=== PATIENT | female | born 1980 | race Caucasian/White ===

== ENCOUNTER → 2018-10-01 07:21 | Outpatient (CLI) | payer OTHER, SELFPAY ==
[2018-10-01 08:37] LABS: Alanine Aminotransferase 21 IU/L (9-52); Albumin 4.2 g/dL (3.5-5.0); Albumin Globulin Ratio 1.5 (1.0-2.8); Alkaline Phosphatase 51 U/L (38-126); Aspartate Aminotransferase 31 IU/L (14-36); Bilirubin Total 0.6 mg/dL (0.2-1.3); Blood Urea Nitrogen 16 mg/dL (7-17); Calcium 9.2 mg/dL (8.4-10.2); Carbon Dioxide 27 mmol/L (22-32); Chloride 100 mmol/L (98-107); Estimated Glomerular Filt Rate > 60.0 mL/min (>60); Globulin 2.8 g/dL (1.7-4.1); Glucose 78 mg/dL (70-100); HEMOLYSIS < 15 (0-50); Potassium 3.8 mmol/L (3.4-5.1); Sodium 137 mmol/L (137-145)
[2018-10-01 09:42] LABS: Thyroid Stimulating Hormone 3.65 uIU/mL (0.47-4.68)
== END ==
PROVIDERS: PCP Physician Assistant; Visit Provider Physician Assistant
DX: E03.9 Hypothyroidism, unspecified (principal); F32.81 Premenstrual dysphoric disorder
CPT/HCPCS: 36415; 80053; 84443

== ENCOUNTER → 2019-12-03 07:29 | Outpatient (CLI) | payer OTHER, SELFPAY ==
[2019-12-03 09:48] LABS: Thyroid Stimulating Hormone 3.69 uIU/mL (0.47-4.68)
== END ==
PROVIDERS: Referring Provider Nurse Practitioner; Visit Provider Nurse Practitioner
DX: E03.9 Hypothyroidism, unspecified (principal)
CPT/HCPCS: 36415; 84443

== ENCOUNTER → 2020-02-19 08:03 | Outpatient (CLI) | payer OTHER, SELFPAY ==
[2020-02-19 09:18] LABS: Alanine Aminotransferase 15 IU/L (<35); Albumin 4.1 g/dL (3.5-5.0); Albumin Globulin Ratio 1.4 (1.0-2.8); Alkaline Phosphatase 67 U/L (38-126); Aspartate Aminotransferase 35 IU/L (14-36); BUN Creatinine Ratio 13.2 (6-22); Blood Urea Nitrogen 10 mg/dL (7-17); Carbon Dioxide 30 mmol/L (22-32); Chloride 100 mmol/L (98-107); Cholesterol 159 mg/dL (140-199); Estimated Glomerular Filt Rate > 60.0 mL/min (>60); Glucose 77 mg/dL (70-100); HDL Cholesterol 71 mg/dL (40-60); HEMOLYSIS < 15 (0-50); LDL Cholesterol Calculated 64 mg/dL (<100); Potassium 3.8 mmol/L (3.4-5.1); Sodium 136 mmol/L (137-145); Total Protein 7.1 g/dL (6.3-8.2); Triglycerides 118 mg/dL (35-150)
== END ==
PROVIDERS: PCP Registered Nurse Diabetes Educator; Referring Provider Registered Nurse Diabetes Educator; Visit Provider Registered Nurse Diabetes Educator
DX: Z00.00 Encounter for general adult medical examination without abnormal findings (principal)
CPT/HCPCS: 36415; 80053; 80061

== ENCOUNTER → 2020-03-04 16:00 | Outpatient (CLI) | payer OTHER, SELFPAY ==
--- NOTE | 2020-03-04 16:01 | DI.MG.S_ITS ---
BILATERAL DIGITAL SCREENING MAMMOGRAM 3D/2D WITH CAD: 03/04/2020 CLINICAL: Routine screening. Family history of breast cancer. Comparison is made to exams dated: 06/24/2014 mammogram and 03/21/2009 mammogram - [facility]. The tissue of both breasts is heterogeneously dense. This may lower the sensitivity of mammography. Current study was also evaluated with a Computer Aided Detection (CAD) system. No significant masses, calcifications, or other findings are seen in either breast. There has been no significant interval change. IMPRESSION: NEGATIVE There is no mammographic evidence of malignancy. A 1 year screening mammogram is recommended. This exam was interpreted at Station ID: [id number]. NOTE: For mammograms, a report in lay terms will be sent to the patient. Approximately 15% of breast malignancies will not be visualized mammographically. In the management of a palpable breast mass, a negative mammogram must not discourage biopsy of a clinically suspicious lesion. Electronically Signed By: Angel toussaint/[email or web address]:03/06/2020 09:46:39 letter sent: Normal Exam ACR BI-RADS Category 1: Negative 3341F
== END ==
PROVIDERS: PCP Registered Nurse Diabetes Educator; Referring Provider Registered Nurse Diabetes Educator; Visit Provider Registered Nurse Diabetes Educator
DX: Z12.31 Encounter for screening mammogram for malignant neoplasm of breast (principal); Z80.3 Family history of malignant neoplasm of breast
CPT/HCPCS: 77063; 77067

== ENCOUNTER → 2021-03-07 16:07 | Outpatient (CLI) | payer OTHER, SELFPAY ==
--- NOTE | 2021-03-07 | DI.MG.S_ITS ---
BILATERAL DIGITAL SCREENING MAMMOGRAM 3D/2D WITH CAD: 03/07/2021 CLINICAL: Routine screening. Family history of breast cancer. Comparison is made to exams dated: 03/04/2020 mammogram, 06/24/2014 mammogram, and 03/21/2009 mammogram - [facility]. There are scattered fibroglandular elements in both breasts. Current study was also evaluated with a Computer Aided Detection (CAD) system. No significant masses, calcifications, or other findings are seen in either breast. There has been no significant interval change. IMPRESSION: NEGATIVE There is no mammographic evidence of malignancy. A 1 year screening mammogram is recommended. This exam was interpreted at Station ID: [id number]. NOTE: For mammograms, a report in lay terms will be sent to the patient. Approximately 15% of breast malignancies will not be visualized mammographically. In the management of a palpable breast mass, a negative mammogram must not discourage biopsy of a clinically suspicious lesion. Electronically Signed By: Kris Johnston acr/penrad:03/07/2021 17:02:00 letter sent: Normal Exam ACR BI-RADS Category 1: Negative 3341F
== END ==
PROVIDERS: PCP Registered Nurse Diabetes Educator; Referring Provider Registered Nurse Diabetes Educator; Visit Provider Registered Nurse Diabetes Educator
DX: Z12.31 Encounter for screening mammogram for malignant neoplasm of breast (principal)
CPT/HCPCS: 77063; 77067

== ENCOUNTER → 2021-04-19 08:07 | Outpatient (CLI) | payer OTHER, SELFPAY ==
[2021-04-19 09:10] LABS: Add Manual Diff / Slide Review NO; Basophils Absolute Auto 0 /uL (0-100); Basophils Percent Auto 0.9 % (0-2); Eosinophils Absolute Auto 100 /uL (0-450); Eosinophils Percent Auto 2.3 % (2-4); Hematocrit 39.4 % (36-46); Hemoglobin 13.3 g/dL (12.0-16.0); Lymphocytes Absolute Auto 1100 /uL (1100-4500); Lymphocytes Percent Auto 28.9 % (25-40); Mean Corpuscular HGB Conc 33.6 % (30-36); Mean Corpuscular Hemoglobin 31.2 PG (26-34); Mean Corpuscular Volume 92.7 fL (80-100); Monocytes Absolute Auto 300 /uL (0-900); Monocytes Percent Auto 8.7 % (3-14); Neutrophils Absolute Auto 2200 /uL (1500-7000); Neutrophils Percent Auto 59.2 % (50-75); Platelet Count 307 X10^3/uL (150-400); Red Blood Cell Count 4.26 X10^6/uL (4.0-5.2); White Blood Cell Count 3.6 X10^3/uL (4.5-11.0)
[2021-04-19 10:20] LABS: Alanine Aminotransferase 15 IU/L (<35); Albumin 3.9 g/dL (3.5-5.0); Albumin Globulin Ratio 1.5 (1.0-2.8); Alkaline Phosphatase 57 U/L (38-126); Aspartate Aminotransferase 30 IU/L (14-36); BUN Creatinine Ratio 9.2 (6-22); Bilirubin Total 0.5 mg/dL (0.2-1.3); Blood Urea Nitrogen 10 mg/dL (7-17); Calcium 9.1 mg/dL (8.4-10.2); Carbon Dioxide 28 mmol/L (22-32); Chloride 102 mmol/L (98-107); Estimated Glomerular Filt Rate 55.3 mL/min (>60); Globulin 2.6 g/dL (1.7-4.1); Glucose 53 mg/dL (70-100); HEMOLYSIS < 15 (0-50); Sodium 137 mmol/L (137-145); Total Protein 6.5 g/dL (6.3-8.2)
[2021-04-19 10:46] LABS: TSH w/ Reflex to FT4 2.67 uIU/mL (0.47-4.68)
== END ==
PROVIDERS: PCP Registered Nurse Diabetes Educator; Referring Provider Registered Nurse Diabetes Educator; Visit Provider Registered Nurse Diabetes Educator
DX: E03.9 Hypothyroidism, unspecified (principal); K51.90 Ulcerative colitis, unspecified, without complications; Z51.81 Encounter for therapeutic drug level monitoring
CPT/HCPCS: 36415; 80053; 84443; 85025

== ENCOUNTER → 2021-05-22 16:37 | Outpatient (CLI) | payer OTHER, SELFPAY ==
[2021-05-22 18:00] LABS: BUN Creatinine Ratio 10.3 (6-22); Blood Urea Nitrogen 8 mg/dL (7-17); Calcium 9.5 mg/dL (8.4-10.2); Carbon Dioxide 30 mmol/L (22-32); Chloride 102 mmol/L (98-107); Estimated Glomerular Filt Rate > 60.0 mL/min (>60); Glucose 89 mg/dL (70-100); HEMOLYSIS < 15 (0-50); Potassium 4.3 mmol/L (3.4-5.1); Sodium 138 mmol/L (137-145)
== END ==
PROVIDERS: PCP Registered Nurse Diabetes Educator; Referring Provider Registered Nurse Diabetes Educator; Visit Provider Registered Nurse Diabetes Educator
DX: R79.89 Other specified abnormal findings of blood chemistry (principal)
CPT/HCPCS: 36415; 80048

== ENCOUNTER → 2022-03-09 08:35 | Outpatient (CLI) | payer OTHER, SELFPAY ==
--- NOTE | 2022-03-09 08:37 | DI.MG.S_ITS ---
BILATERAL DIGITAL SCREENING MAMMOGRAM 3D/2D WITH CAD: 03/09/2022 CLINICAL: Routine screening. Family history of breast cancer. Comparison is made to exams dated: 03/07/2021 mammogram, 03/04/2020 mammogram, and 06/24/2014 mammogram - [facility]. Both breasts are heterogeneously dense, which may obscure small masses (category c / 51-75% glandular tissue). Current study was also evaluated with a Computer Aided Detection (CAD) system. No significant masses, calcifications, or other findings are seen in either breast. There has been no significant interval change. IMPRESSION: NEGATIVE There is no mammographic evidence of malignancy. A 1 year screening mammogram is recommended. Based on Tyrer-Cuzick model (a risk assessment model), the patient's lifetime risk is 30.6% and her 10 year risk is 5.3%. If a patient has an elevated risk, a more comprehensive evaluation should be considered and/or a referral to a genetic counselor. The [employer] [employer], [employer], and NCCN Guidelines advise the consideration of Breast MRI as an adjunct to screening mammography in patients whose Lifetime risk to develop breast cancer is 20% or higher. This exam was interpreted at Station ID: [id number]. NOTE: For mammograms, a report in lay terms will be sent to the patient. Approximately 15% of breast malignancies will not be visualized mammographically. In the management of a palpable breast mass, a negative mammogram must not discourage biopsy of a clinically suspicious lesion. Electronically Signed By: Jareth mobley/antonina:03/09/2022 10:30:08 letter sent: Normal Exam ACR BI-RADS Category 1: Negative 3341F
== END ==
PROVIDERS: PCP Registered Nurse Diabetes Educator; Referring Provider Registered Nurse Diabetes Educator; Visit Provider Registered Nurse Diabetes Educator
DX: Z12.31 Encounter for screening mammogram for malignant neoplasm of breast (principal); Z80.3 Family history of malignant neoplasm of breast
CPT/HCPCS: 77063; 77067

== ENCOUNTER → 2022-07-01 12:00 | Outpatient (CLI) | payer OTHER, SELFPAY ==
--- NOTE | 2022-07-01 12:01 | DI.RAD.S_ITS ---
PROCEDURE: XR FINGER RT MIN 2V INDICATIONS: eval 3rd pip joint pain/swelling TECHNIQUE: PA hand, 2 views of the middle finger acquired. COMPARISON: None. FINDINGS: Bones: No acute fractures or dislocations. No suspicious bony lesions. Soft tissues: No suspicious soft tissue calcifications. Mild 3rd digit dorsal soft tissue swelling. IMPRESSION: Mild soft tissue swelling about the dorsal aspect of the 3rd PIP joint; otherwise joints are well maintained and no inflammatory arthritic changes. Dictated by: Reece KELLOGG Interpreted: Laz Dobbins MD on 07/01/2022 at 13:07 Transcribed by: NAYLA on 07/01/2022 at 13:08 Approved by: Laz Dobbins M.D. on 07/01/2022 at 20:21
== END ==
PROVIDERS: PCP Registered Nurse Diabetes Educator; Referring Provider Registered Nurse Diabetes Educator; Visit Provider Registered Nurse Diabetes Educator
DX: M25.441 Effusion, right hand (principal)
CPT/HCPCS: 73140

== ENCOUNTER → 2022-07-02 06:52 | Outpatient (CLI) | payer OTHER, SELFPAY ==
[2022-07-02 07:38] LABS: Add Manual Diff / Slide Review NO; Basophils Absolute Auto 0 /uL (0-100); Basophils Percent Auto 1.1 % (0-2); Eosinophils Absolute Auto 400 /uL (0-450); Eosinophils Percent Auto 8.5 % (2-4); Hematocrit 39.8 % (36-46); Hemoglobin 13.4 g/dL (12.0-16.0); Lymphocytes Absolute Auto 1000 /uL (1100-4500); Lymphocytes Percent Auto 23.3 % (25-40); Mean Corpuscular HGB Conc 33.7 % (30-36); Mean Corpuscular Volume 91.9 fL (80-100); Monocytes Absolute Auto 300 /uL (0-900); Monocytes Percent Auto 7.2 % (3-14); Neutrophils Absolute Auto 2400 /uL (1500-7000); Neutrophils Percent Auto 59.9 % (50-75); Platelet Count 248 X10^3/uL (150-400); Red Blood Cell Count 4.33 X10^6/uL (4.0-5.2); Red Cell Distribution Width 12.5 % (11.6-14.8); White Blood Cell Count 4.1 X10^3/uL (4.5-11.0)
[2022-07-02 07:45] LABS: Alanine Aminotransferase 22 IU/L (<35); Albumin 4.1 g/dL (3.5-5.0); Albumin Globulin Ratio 1.2 (1.0-2.8); Alkaline Phosphatase 68 U/L (38-126); Aspartate Aminotransferase 30 IU/L (14-36); BUN Creatinine Ratio 15.8 (6-22); Bilirubin Total 0.7 mg/dL (0.2-1.3); Blood Urea Nitrogen 12 mg/dL (7-17); C-Reactive Protein Quant < 0.5 mg/dL (<1.0); Calcium 8.9 mg/dL (8.4-10.2); Carbon Dioxide 27 mmol/L (22-32); Chloride 101 mmol/L (98-107); Cholesterol 165 mg/dL (140-199); Estimated Glomerular Filt Rate > 60 mL/min (>60); Globulin 3.3 g/dL (1.7-4.1); Glucose 83 mg/dL (70-100); HDL Cholesterol 84 mg/dL (40-60); HEMOLYSIS < 15 (0-50); LDL Cholesterol Calculated 65 mg/dL (<100); Potassium 3.7 mmol/L (3.4-5.1); Sodium 136 mmol/L (137-145); Total Protein 7.4 g/dL (6.3-8.2); Triglycerides 79 mg/dL (35-150)
[2022-07-02 07:52] LABS: Erythrocyte Sedimentation Rate 5 MM/HR (0-20); Rheumatoid Factor < 8.6 IU/mL (<12.0)
[2022-07-02 08:14] LABS: TSH w/ Reflex to FT4 4.15 uIU/mL (0.47-4.68)
[2022-07-04 17:02] LABS: CCP Antibodies IgG/IgA 41 units (0-19)
[2022-07-05 20:07] LABS: ANA Screen, IFA Positive (.)
== END ==
PROVIDERS: PCP Registered Nurse Diabetes Educator; Referring Provider Registered Nurse Diabetes Educator; Visit Provider Registered Nurse Diabetes Educator
DX: E03.9 Hypothyroidism, unspecified (principal); M25.449 Effusion, unspecified hand; Z00.00 Encounter for general adult medical examination without abnormal findings
CPT/HCPCS: 36415; 80053; 80061; 84443; 84550; 85025; 85651; 86038; 86140; 86200; 86430

== ENCOUNTER → 2022-09-25 13:16 | Outpatient (CLI) | payer OTHER, SELFPAY ==
--- NOTE | 2022-09-25 13:17 | DI.MRI.S_ITS ---
BREAST MRI OF BOTH BREASTS: 09/25/2022 CLINICAL: High risk Breast cancer screen. PROCEDURE: MR BREAST BI WO/W CON INDICATIONS: high risk breast cancer screen based on Tyrer-Cuzik TECHNIQUE: The patient was placed prone in a dedicated breast imaging coil. Precontrast axial STIR and 3D FLASH without fat saturation sequences were obtained. Both before and after bolus injection of contrast, sequential 1-minute axial 3D FLASH with fat saturation sequences for 3 time points, with subtraction images and maximum intensity projections (MIP's) generated. Delayed sagittal FLASH images with fat saturation were also obtained. CONTRAST: 20 cc ProHance IV contrast. Computer-aided detection, including computer algorithm analysis of MRI image data for lesion detection and characterization, pharmacokinetic analysis, with further physician review for interpretation, was performed. COMPARISON: MG, MM SCREENING MAMMO BI, 03/09/2022, 8:47. MG, MM SCREENING MAMMO BI, 03/07/2021, 16:32. MG, MM SCREENING MAMMO BI, 03/04/2020, 16:19. FINDINGS: Image quality: Excellent. There is moderate background parenchymal enhancement. Right breast: No mass or suspicious enhancement. Left breast: No mass or suspicious enhancement. A few small T2 hyperintense cysts. Miscellaneous: No enlarged lymph nodes. IMPRESSION: BENIGN No mass or suspicious enhancement. No enlarged lymph nodes. BIRADS 2 A 1 year screening mammogram is recommended. 03/10/2023 COMMENT: The imaging literature indicates that a negative contrast breast MRI examination has a high sensitivity and a moderate specificity for detecting and excluding invasive carcinomas to a detection threshold of 3-5 mm; nonetheless, appropriate clinical and mammographic follow-up are recommended. MRI is not sensitive for detecting DCIS (ductal carcinoma in situ) and may not detect large invasive neoplasms that show only minimal enhancement such as mucinous carcinoma. If there are suspicious calcifications or clinically worrisome palpable masses, then biopsy should still be considered. Invasive neoplasms can be hidden by co-existent and benign enhancement caused by mastitis, hormone therapy effects, radiation therapy, , and recent biopsy or surgery. False positive examinations can occur in a number of circumstances, including breasts that have recently been subject to invasive procedures and those that contain atypical ductal hyperplasia, hormonally stimulated glandular tissue, fat necrosis, or radial scars. Dictated by: Karel Hammonds M.D. on 09/26/2022 at 7:44 This exam was interpreted at Station ID: [id number]. Electronically Signed By: Karel Hammonds M.D. slc/:09/26/2022 08:01:42 letter sent: Normal Exam ACR BI-RADS Category 2: Benign Finding(s) 3342F
== END ==
PROVIDERS: PCP Registered Nurse Diabetes Educator; Referring Provider Registered Nurse Diabetes Educator; Visit Provider Registered Nurse Diabetes Educator
DX: Z12.39 Encounter for other screening for malignant neoplasm of breast (principal)
CPT/HCPCS: 77049; A9579

== ENCOUNTER → 2023-03-17 07:30 | Outpatient (CLI) | payer OTHER, SELFPAY ==
--- NOTE | 2023-03-17 | DI.MG.S_ITS ---
BILATERAL DIGITAL SCREENING MAMMOGRAM 3D/2D WITH CAD: 03/17/2023 CLINICAL: Routine screening. Family history of breast cancer. Comparison is made to exams dated: 03/09/2022 mammogram, 03/07/2021 mammogram, and 03/04/2020 mammogram - [facility]. Both breasts are heterogeneously dense, which may obscure small masses (category c / 51-75% glandular tissue). Current study was also evaluated with a Computer Aided Detection (CAD) system. No significant masses, calcifications, or other findings are seen in either breast. There has been no significant interval change. IMPRESSION: NEGATIVE There is no mammographic evidence of malignancy. A 1 year screening mammogram is recommended. Future imaging is recommended as follows: 09/26/2023 screening mammogram. Supplemental MRI screening should be considered given significantly elevated lifetime risk (below). Based on Tyrer-Cuzick model (a risk assessment model), the patient's lifetime risk is 30.6% and her 10 year risk is 5.7%. If a patient has an elevated risk, a more comprehensive evaluation should be considered and/or a referral to a genetic counselor. The [employer], [employer], and NCCN Guidelines advise the consideration of Breast MRI as an adjunct to screening mammography in patients whose Lifetime risk to develop breast cancer is 20% or higher. This exam was interpreted at Station ID: [id number]. NOTE: For mammograms, a report in lay terms will be sent to the patient. Approximately 15% of breast malignancies will not be visualized mammographically. In the management of a palpable breast mass, a negative mammogram must not discourage biopsy of a clinically suspicious lesion. Electronically Signed By: Rodo Cruz M.D. lc/:03/17/2023 12:59:05 letter sent: Normal Exam ACR BI-RADS Category 1: Negative 3341F
== END ==
PROVIDERS: PCP Registered Nurse Diabetes Educator; Referring Provider Registered Nurse Diabetes Educator; Visit Provider Registered Nurse Diabetes Educator
DX: Z12.31 Encounter for screening mammogram for malignant neoplasm of breast (principal); Z80.3 Family history of malignant neoplasm of breast
CPT/HCPCS: 77063; 77067

== ENCOUNTER → 2023-07-29 09:25 | Outpatient (CLI) | payer OTHER, SELFPAY ==
[2023-07-29 11:33] LABS: TSH w/ Reflex to FT4 2.45 uIU/mL (0.47-4.68)
== END ==
PROVIDERS: PCP Registered Nurse Diabetes Educator; Referring Provider Registered Nurse Diabetes Educator; Visit Provider Registered Nurse Diabetes Educator
DX: E03.9 Hypothyroidism, unspecified (principal)
CPT/HCPCS: 36415; 84443

== ENCOUNTER → 2024-04-01 08:10 | Outpatient (CLI) | payer OTHER, SELFPAY ==
--- NOTE | 2024-04-01 | DI.MG.S_ITS ---
BILATERAL DIGITAL SCREENING MAMMOGRAM 3D/2D WITH CAD: 04/01/2024 CLINICAL: Routine screening. Family history of breast cancer. Comparison is made to exams dated: 03/17/2023 mammogram, 03/09/2022 mammogram, and 03/07/2021 mammogram - [facility]. The breasts are heterogeneously dense, which may obscure small masses (category c / 51-75% glandular tissue). Current study was also evaluated with a Computer Aided Detection (CAD) system. No significant masses, calcifications, or other findings are seen in either breast. There has been no significant interval change. IMPRESSION: NEGATIVE There is no mammographic evidence of malignancy. A 1 year screening mammogram is recommended. Based on Tyrer-Cuzick model (a risk assessment model), the patient's lifetime risk is 30.7% and her 10 year risk is 6.0%. If a patient has an elevated risk, a more comprehensive evaluation should be considered and/or a referral to a genetic counselor. The [place] [employer], [place] [employer], and NCCN Guidelines advise the consideration of Breast MRI as an adjunct to screening mammography in patients whose Lifetime risk to develop breast cancer is 20% or higher. This exam was interpreted at Station ID: [id number]. NOTE: For mammograms, a report in lay terms will be sent to the patient. Approximately 15% of breast malignancies will not be visualized mammographically. In the management of a palpable breast mass, a negative mammogram must not discourage biopsy of a clinically suspicious lesion. Electronically Signed By: Jareth mobley/antonina:04/02/2024 06:59:54 letter sent: Normal Exam ACR BI-RADS Category 1: Negative
== END ==
LOC: MAMMO 08:10
PROVIDERS: PCP Registered Nurse Diabetes Educator; Referring Provider Registered Nurse Diabetes Educator; Visit Provider Registered Nurse Diabetes Educator
DX: Z12.31 Encounter for screening mammogram for malignant neoplasm of breast (principal); Z80.3 Family history of malignant neoplasm of breast; R92.333 Mammographic heterogeneous density, bilateral breasts
CPT/HCPCS: 77063; 77067

== ENCOUNTER → 2024-07-27 08:44 | Outpatient (CLI) | payer OTHER, SELFPAY ==
[2024-07-27 10:34] LABS: TSH w/ Reflex to FT4 2.08 uIU/mL (0.47-4.68)
== END ==
PROVIDERS: PCP Registered Nurse Diabetes Educator; Referring Provider Registered Nurse Diabetes Educator; Visit Provider Registered Nurse Diabetes Educator
DX: E03.9 Hypothyroidism, unspecified (principal)
CPT/HCPCS: 36415; 84443

== ENCOUNTER → 2024-09-06 15:45 | Outpatient (CLI) | payer OTHER, SELFPAY ==
--- NOTE | 2024-09-06 15:46 | DI.MRI.S_ITS ---
MR breast BI wo/w con: 09/06/2024. BI-RADS: 1 CLINICAL: 44-year old female for bilateral diagnostic breast MRI. High-Risk Screening MRI. Current reported family history of breast cancer: mother. The patient reports testing negative for BRCA gene mutation. PRIOR EXAMS: 04/01/2024, 03/17/2023, 09/25/2022, 03/09/2022, 03/07/2021, 03/04/2020. MRI TECHNIQUE: Bilateral breast MRI was performed on a 1.5 Deirdre magnet using a dedicated breast coil with mild compression. Axial T1 and T2 STIR sequences were obtained. Dynamic contrast enhanced VIBRANT fat-suppressed sequences were obtained. Delayed sagittal high resolution or sagittal reconstructed isotropic sequence was also obtained. Subtraction images and maximum intensity projection images were obtained. The study was evaluated using Safend software. IV Contrast: 20 ml ProHance. FIBROGLANDULAR TISSUE Bilateral: C. Heterogeneous fibroglandular tissue. BACKGROUND PARENCHYMAL ENHANCEMENT Bilateral: Mild symmetrical background parenchymal enhancement. BREAST FINDINGS Bilateral: No significant change since previous exam(s). There is no suspicious mass or non-mass enhancement. Gradual symmetric peripheral enhancement compatible with vascular inflow phenomenon. There are no abnormal axillary or internal mammary lymph nodes. IMPRESSION: * No evidence of malignancy. RECOMMENDATIONS Bilateral * According to the Tyrer-Cuzick Risk Assessment Model, based on the information provided your patient has a greater than 20% lifetime risk for developing breast cancer. Consider supplemental screening with breast MRI and participation in a high risk screening program. * Annual screening mammography. COMMENTS: The imaging literature indicates that a negative contrast breast MRI examination has a high sensitivity and a moderate specificity for detecting and excluding invasive carcinomas to a detection threshold of 3-5 mm; nonetheless, appropriate clinical and mammographic follow-up are recommended. MRI is not sensitive for detecting DCIS (ductal carcinoma in situ) and may not detect large invasive neoplasms that show only minimal enhancement such as mucinous carcinoma. If there are suspicious calcifications or clinically worrisome palpable masses, then biopsy should still be considered. Invasive neoplasms can be hidden by co-existent and benign enhancement caused by mastitis, hormone therapy effects, radiation therapy, , and recent biopsy or surgery. False positive examinations can occur in a number of circumstances, including breasts that have recently been subject to invasive procedures and those that contain atypical ductal hyperplasia, hormonally stimulated glandular tissue, fat necrosis, or radial scars. OVERALL ASSESSMENT CATEGORY BI-RADS-1: Negative. ELECTRONICALLY SIGNED: Teresita Conway M.D. on 09/06/2024 at 05:19:07 PM PT Interpreting Station ID: [id number]
== END ==
PROVIDERS: PCP Registered Nurse Diabetes Educator; Referring Provider Registered Nurse Diabetes Educator; Visit Provider Registered Nurse Diabetes Educator
DX: Z12.39 Encounter for other screening for malignant neoplasm of breast (principal); Z91.89 Other specified personal risk factors, not elsewhere classified; Z80.3 Family history of malignant neoplasm of breast; R92.333 Mammographic heterogeneous density, bilateral breasts
CPT/HCPCS: 77049; A9579

== ENCOUNTER → 2025-05-02 07:48 | Outpatient (CLI) | payer OTHER, SELFPAY ==
--- NOTE | 2025-05-02 07:49 | DI.MG.S_ITS ---
MM screening mammo BI: 05/02/2025. BI-RADS: 1 CLINICAL: 44-year old female for bilateral screening mammogram. Tyrer-Cuzick lifetime risk of 23.4%. Current reported family history of breast cancer: mother. The patient reports testing negative for BRCA gene mutation. PRIOR EXAMS 09/06/2024, 04/01/2024, 03/17/2023, 09/25/2022, 03/09/2022, 03/07/2021, 03/04/2020. MAMMOGRAPHY TECHNIQUE: 2D and 3D (tomosynthesis) digital mammographic views obtained, with additional images as needed for full coverage. Current study was also evaluated with a Computer Aided Detection (CAD) system. DENSITY C. The breasts are heterogeneously dense, which may obscure small masses. MAMMOGRAPHY FINDINGS Bilateral: No suspicious mass, asymmetry, microcalcification, or other abnormality seen. IMPRESSION: * No evidence of malignancy. RECOMMENDATIONS Bilateral * According to the Tyrer-Cuzick Risk Assessment Model, based on the information provided your patient has a greater than 20% lifetime risk for developing breast cancer. Consider supplemental screening with breast MRI and participation in a high risk screening program. * Annual screening mammography. OVERALL ASSESSMENT CATEGORY BI-RADS-1: Negative. The [employer] recommends annual screening mammography beginning at age 40 for women with average risk of breast cancer. ELECTRONICALLY SIGNED: Teresita Conway M.D. on 05/03/2025 at 08:55:02 AM PT Interpreting Station ID: [id number]
== END ==
LOC: MAMMO 07:49
PROVIDERS: PCP Registered Nurse Diabetes Educator; Referring Provider Registered Nurse Diabetes Educator; Visit Provider Registered Nurse Diabetes Educator
DX: Z12.31 Encounter for screening mammogram for malignant neoplasm of breast (principal); R92.333 Mammographic heterogeneous density, bilateral breasts; Z80.3 Family history of malignant neoplasm of breast
CPT/HCPCS: 77063; 77067